=== PATIENT | male | born 1960 | race Caucasian/White ===

== ENCOUNTER → 2019-01-04 | Outpatient (CLI) | payer OTHER, SELFPAY ==
--- NOTE | 2019-01-04 08:59 | RAD_ITS ---
PROCEDURE: Fluoroscopic guided Hip Injection DATE: January 04, 2019. INDICATION: Male, 58 years old. Left hip pain. PHYSICIAN: Nino Alan M.D. MEDICATIONS: 12 mg of Celestone and 3 cc 1% lidocaine. 2% lidocaine administered subcutaneously for local anesthesia. ACCESS SITE: Left hip. NEEDLE: 22-gauge spinal needle. FLUOROSCOPY TIME (if supplied): (0:28) minutes/seconds FINDINGS: The risks, benefits, and alternatives to the procedure were explained to the patient. The specific risks of bleeding, infection, and neurovascular injury were detailed and accepted. Witnessed informed consent was obtained. A 22-gauge spinal needle was positioned under right graphic fluoroscopic localization. Approximately 2 cc of Isovue-300 instilled for localization purposes. Medication was then injected. The patient tolerated the procedure well without any immediate complications. RAD/Inj/Asp Reese Jt Should/Hip/Knee IMPRESSION: 1. Successful fluoroscopic guided hip injection. Electronically Signed: Nino Alan, at 10:00 EDT , Service support ,
== END | disposition home or self-care (01) ==
PROVIDERS: Family Provider Internal Medicine; PCP Internal Medicine
DX: M16.12 Unilateral primary osteoarthritis, left hip (principal)
CPT/HCPCS: 20610; 77002; Q9967; J0702

== ENCOUNTER → 2021-05-17 | Outpatient (CLI) | payer OTHER, MEDICAID, SELFPAY | END | disposition home or self-care (01) | LOC: LABSPEC 15:05 | PROVIDERS: PCP Internal Medicine; Referring Provider Otolaryngology; Visit Provider Otolaryngology | DX: J32.8 Other chronic sinusitis (principal) | CPT/HCPCS: 87070; 87205 ==

== ENCOUNTER 2022-12-25 17:55 | Emergency (ER) | payer MEDICAID, SELFPAY ==
[2022-12-25 17:56] VITALS: BP 178/100; PULSE 86; RESP 17; TEMP 36.6; O2SAT 99; BMI 26.6
[2022-12-25] MEDS: Rabies Immune Globulin/PF 300 UNIT/ML, 5 ML VIAL 1500 UNIT IM (20:02)
--- NOTE | 2022-12-25 20:25 | EDS_ITS ---
HPI History of Present Illness Chief Complaint: Bite Informant: patient Onset/Context/Timing Onset: Yesterday Context: Sudden Onset Timing: Continuous Quality: Dull Location: Back Worsened by: Nothing Relieved by: Nothing Narrative Narrative: Patient presents after questionable bat bite. Patient was seen at an outlying facility where he had an incision and drainage performed on a small abscess where the bite occurred. Patient was given a tetanus booster at the outside facility. Patient was referred to the emergency department here for rabies immunoglobulin and vaccine since it was unavailable at the other facility. Patient states the bite occurred yesterday. Patient states that he has noticed some bats in his house recently but he was able to get them outside without being bitten. [facility] Medical History (Updated 12/25/22 @ 23:[address] Brian Souza DO) Hypertension Home Medications Ranitidine [Zantac] 300 mg PO DAILY 08/21/16 [History Last Taken Unknown] amitriptyline 150 mg tablet 150 mg PO DAILY 08/21/16 [History Last Taken Unknown] amoxicillin 875 mg-potassium clavulanate 125 mg tablet 875 mg PO Q12H ##20 07/28 01/10 [Rx Last Taken Unknown] atorvastatin 10 mg tablet 10 mg PO QHS 08/21/16 [History Last Taken Unknown] clobetasol 0.05 % shampoo (Clobex) 118 ml TP BID 08/21/16 [History Last Taken Unknown] diazepam 5 mg tablet 2.5 mg PO QHS PRN Insomnia 08/21/16 [History Last Taken Unknown] hydrocodone-acetaminophen 5-325mg 5mg-325mg (Pringle) 1 ea PO DAILY pain 08/21/16 [History Last Taken Unknown] losartan 50 mg tablet (Cozaar) 50 mg PO DAILY 08/21/16 [History Last Taken Unknown] nadolol 20 mg tablet 20 mg PO DAILY 08/21/16 [History Last Taken Unknown] naproxen 500 mg tablet,delayed release 500 mg PO BID 08/21/16 [History Last Taken Unknown] travoprost 0.004 % eye drops (Travatan Z) 1 drp QHS 08/21/16 [History Last Taken Unknown] Allergy/AdvReac Type Severity Reaction Status Date / Time No Known Allergies Allergy Verified 12/25/22 19:06 Surgical History (Updated 12/25/22 @ 23:[address] Brian Souza DO) History of appendectomy Hx of tonsillectomy Status post ORIF of fracture of ankle Social History Smoking Status: Light Smoker (<10/day) ROS ROS ED Constitutional Constitutional ED: Denies chills or fever(s) Eyes Eyes: Denies blurry vision or change in vision ENT ENT ED: Denies rhinorrhea or sore throat Cardiovascular Cardiovascular: Denies chest pain or palpitations Respiratory/Chest Respiratory/Chest: Denies cough or dyspnea Gastrointestinal Gastrointestinal: Denies nausea or vomiting Genitourinary Genitourinary ED: Denies dysuria or hematuria Musculoskeletal Musculoskeletal: Denies back pain or neck pain Integumentary Denies abscess or rash Neurologic Neurologic: Denies headache(s) or weakness Allergic/Immunologic Allergic/Immunologic ED: Denies mouth swelling or urticaria EXAM Physical Exam Const Vital Signs: 12/25/22 17:56 12/25/22 21:00 Temperature 97.8 F Temperature Source Temporal Pulse Rate 86 Respiratory Rate 17 17 Blood Pressure 178/100 H Blood Pressure Mean 126 Pulse Ox 99 Oxygen Delivery Method Room Air Positive well nourished and well developed General Appearance ED: well developed and NAD HEENT Reports moist mucous membranes Neck supple and no JVD Neuro oriented x3, CN's II-XII intact bilaterally and no sensory deficits noted Sensorium / Orientation: alert Motor Exam: strength 5/5 throughout Psych mental status grossly normal Skin Skin Narrative: There is an open wound on the upper thoracic spine just to the right of midline. There is no bleeding noted. There are some mild erythema at the site. There is no active discharge or drainage noted. There is a superficial linear abrasion from this area extending laterally. There is no bleeding noted. There is no erythema along the abrasion. There is minimal tenderness. MDM MDM MDM Narrative Medical decision making narrative: Patient was advised of the need for rabies immunoglobulin and rabies vaccine. Rabies immunoglobulin was injected at the site of the incision and drainage which is likely the site of bat bite. Patient was given a rabies vaccine. Patient was instructed return in 3 days, 7 days, and 14 days for repeat vaccines. Patient understands and is agreeable with the plan. All questions were answered. Discharge Plan Triage Chief Complaint: Bite ED Provider: Brian Souza Dx/Rx/DC Orders Clinical Impression: Bat bite wound, Need for post exposure prophylaxis for rabies Prescriptions: No Action amoxicillin-pot clavulanate 875 MG tablet 875 mg PO Q12H Qty: 20 0RF losartan [Cozaar] 50 MG tablet 50 mg PO DAILY atorvastatin 10 MG tablet 10 mg PO QHS amitriptyline 150 MG tablet 150 mg PO DAILY hydrocodone-acetaminophen [Pringle] 1 EACH tablet 1 ea PO DAILY travoprost [Travatan Z] 1 DROP bottle 1 drp Each Eye QHS nadolol 20 MG tablet 20 mg PO DAILY naproxen 500 MG tablet,delayed release (DR/EC) 500 mg PO BID diazepam 5 MG tablet 2.5 mg PO QHS PRN (Reason: Insomnia) clobetasol [Clobex] 118 ML shampoo 118 ml TP BID Ranitidine [Zantac] 300 MG tablet 300 mg PO DAILY Primary Care Provider: Mahad Brown Referrals: Mahad Brown MD [Primary Care Provider] - 5-7 Days Activity Restrictions/Additional Instructions: Return to the emergency department for follow-up rabies vaccines as scheduled. Disposition Disposition: Home, Self Care Discharge Date/Time: 12/25/22 21:00
[2022-12-25] MEDS: Rabies Vaccine,Human Diploid 2.5 UNITS Vial IM (20:30)
[2022-12-25 21:00] VITALS: RESP 17
== END 2022-12-25 21:00 | disposition home or self-care (01) ==
PROVIDERS: Emergency Provider Emergency Medicine; PCP Internal Medicine; Visit Provider Emergency Medicine
DX: S21.259A Open bite of unspecified back wall of thorax without penetration into thoracic cavity, initial encounter (principal); I10 Essential (primary) hypertension; F17.200 Nicotine dependence, unspecified, uncomplicated; W55.81XA Bitten by other mammals, initial encounter; Z20.3 Contact with and (suspected) exposure to rabies
CPT/HCPCS: 90675; 96372; 99283; 90375

== ENCOUNTER 2022-12-28 14:20 | Outpatient (CLI) | payer MEDICAID, SELFPAY ==
[2022-12-28 14:21] VITALS: BP 132/81; PULSE 80; RESP 18; TEMP 36.6; O2SAT 97
[2022-12-28] MEDS: Rabies Vaccine,Human Diploid 2.5 UNITS Vial IM (14:48)
== END 2022-12-28 15:02 | disposition home or self-care (01) ==
PROVIDERS: PCP Internal Medicine
DX: Z23 Encounter for immunization (principal)
CPT/HCPCS: 90675; 96372

== ENCOUNTER → 2023-01-04 | Outpatient (CLI) | payer MEDICAID, SELFPAY ==
[2023-01-04 13:00] VITALS: BP 169/93; PULSE 75; RESP 18; TEMP 35.6; O2SAT 100
[2023-01-04] MEDS: Rabies Vaccine,Human Diploid 2.5 UNITS Vial IM (13:10)
== END | disposition home or self-care (01) ==
PROVIDERS: PCP Internal Medicine
DX: Z23 Encounter for immunization (principal)
CPT/HCPCS: 90675; 96372

== ENCOUNTER 2023-01-11 15:42 | Outpatient (CLI) | payer MEDICAID, SELFPAY ==
[2023-01-11 15:43] VITALS: BP 167/91; PULSE 70; RESP 18; O2SAT 99
[2023-01-11] MEDS: Rabies Vaccine,Human Diploid 2.5 UNITS Vial IM (16:23)
== END 2023-01-11 17:10 | disposition home or self-care (01) ==
PROVIDERS: PCP Internal Medicine
DX: Z23 Encounter for immunization (principal)
CPT/HCPCS: 90675; 96372